=== PATIENT | male | born 1960 | race Caucasian/White ===

== ENCOUNTER 2023-08-24 07:42 | Outpatient (OUT) | payer OTHER, SELFPAY ==
--- NOTE | 2023-08-24 07:46 | XR_ITS ---
The [address] [address] Patient Name: NASIMA FLOREZ MRN: [id number] date: 1960 Sex: M Assigned Patient Location: RAD Current Patient Location: [facility] Accession/Order Number: [id number] Exam Date: 08/24/2023 07:50 Report Date: 08/24/2023 09:00 At the request of: MEI PATRICK Procedure: XR ankle RT 2V PROCEDURE: XR ankle RT 2V HISTORY: Right Ankle Fracture S92.101A COMPARISON: None. FINDINGS: BONES:No fracture, acute abnormality, or significant arthropathy. SOFT TISSUES:No visible soft tissue swelling. EFFUSION:None visible. OTHER: Negative. XR/XR ankle RT 2V IMPRESSION: 1. No acute bone abnormality or significant degenerative changes. Electronically authenticated by: DAMIAN RAWLS Date: 08/24/2023 09:00
== END 2023-08-24 07:43 | disposition home or self-care (01) ==
LOC: RAD 07:42
DX: S92.101A Unspecified fracture of right talus, initial encounter for closed fracture (principal)
CPT/HCPCS: 73600